=== PATIENT | male | born 1975 | race Caucasian/White ===

== ENCOUNTER 2023-11-27 13:38 | Outpatient (CLI) | payer OTHER, SELFPAY ==
--- NOTE | 2023-11-27 13:45 | US_ITS ---
FINAL REPORT TECHNIQUE: Ultrasound images of the kidneys and bladder were obtained. CLINICAL HISTORY: PREVIOUS IMAGING SHOWED CYST AND STONES FINDINGS: The right kidney measures 10.6 cm in length. It is normal in echogenicity. There is no hydronephrosis. The left kidney measures 10.5 cm in length. It is normal in echogenicity. There is no hydronephrosis. The spleen is unremarkable. There is a probable 1.2 cm parapelvic cyst. IMPRESSION: Probable parapelvic cyst. Reviewed, Interpreted and Dictated by Peter Rojas III, MD Transcribed by Millicent Guadarrama Authenticated and [facility]
== END 2023-11-27 23:59 | disposition home or self-care (01) ==
LOC: RAD 13:41
PROVIDERS: PCP Nurse Practitioner; Visit Provider Nurse Practitioner
DX: E27.8 Other specified disorders of adrenal gland (principal); N28.1 Cyst of kidney, acquired; N20.0 Calculus of kidney
CPT/HCPCS: 76770

== ENCOUNTER 2024-04-24 12:36 | Outpatient (CLI) | payer OTHER, SELFPAY ==
[2024-04-24 13:10] LABS: Basophils # 0.1 K/mm3 (0-0.2); Basophils % 0.7 % (0.1-2.0); Eosinophils # 0.4 K/mm3 (0.0-0.4); Eosinophils % 3.9 % (0.1-12.0); Hematocrit 46.4 % (42.0-52.0); Hemoglobin 15.6 g/dL (14.1-18.0); Lymphocytes # 2.6 K/mm3 (0.7-4.5); Lymphocytes % 23.2 % (10-50); Mean Corpuscular HGB Conc 33.6 g/dL (31.8-35.4); Mean Corpuscular Hemoglobin 30.6 pg (27.0-31.2); Mean Corpuscular Volume 91.2 fl (80-94); Mean Platelet Volume 10.8 fl (7.4-10.4); Monocytes # 0.4 K/mm3 (0.1-1.0); Monocytes % 3.8 % (1.7-9.3); Neutrophils # 7.6 K/mm3 (1.8-7.8); Platelet Count 289 K/mm3 (142-424); Red Blood Count 5.09 M/mm3 (4.60-6.20); White Blood Count 11.1 K/mm3 (4.8-10.8)
[2024-04-24 13:41] LABS: Alanine Aminotransferase 23 U/L (12-78); Albumin Level 4.7 g/dl (3.5-5.0); Albumin/Globulin Ratio 1.8 (1.1-1.8); Alkaline Phosphatase 82 U/L (38-126); Anion Gap 13.1 mEq/L (5-15); Aspartate Amino Transferase 30 U/L (17-59); Bilirubin,Total 0.6 mg/dl (0.2-1.3); Blood Urea Nitrogen 16 mg/dl (9-20); Calcium 9.8 mg/dl (8.4-10.2); Carbon Dioxide 30 mmol/L (22.0-30.0); Chloride 103 mmol/L (98-107); Chol/HDL Ratio 5.4 (1-3.5); Cholesterol 179 mg/dl (140-200); Estimated Glomerular Filt Rate 64 ml/min (>60); GFR (African American) 78 ML/MIN (>60); Globulin 2.6 g/dL (1.3-3.2); Glucose 120 mg/dl (74-100); HDL Cholesterol 33 mg/dl (40-60); Potassium 4.1 mmoL/L (3.5-5.1); Sodium 142 mmol/L (136-145); Total Protein,Serum 7.3 g/dl (6.3-8.2); Triglycerides 178 mg/dl (30-150); VLDL Cholesterol 36 mg/dL (0-40)
[2024-04-24 13:48] LABS: Iron 98 ug/dL (49-181)
[2024-04-24 13:54] LABS: Erythrocyte Sedimentation Rate 23 mm/hr (0-15)
[2024-04-24 13:58] LABS: C-Reactive Protein 18.1 mg/L (0-4); Direct LDL Cholesterol 100.33 mg/dL (100-129); Total Iron Binding Capacity 267 ug/dL (261-462)
[2024-04-24 13:59] LABS: 25-OH Vitamin D, Total 38.4 ng/mL (30-100)
[2024-04-24 14:01] LABS: T4 (Thyroxine) 8.6 ug/dl (5.53-11.0)
[2024-04-24 14:15] LABS: Prostate Specific Ag Screen 1.8 ng/ml (0.0-4.0); Thyroid Stimulating Hormone 2.15 uIU/mL (0.465-4.68)
[2024-04-24 14:22] LABS: HIV Combo NEGATIVE (Negative)
[2024-04-24 14:25] LABS: Ferritin 245 ng/ml (17.9-464)
[2024-04-24 14:29] LABS: Hepatitis C Ab Qual. W/ RFX NEGATIVE (Negative)
[2024-05-01 08:17] LABS: Testosterone,Total 263 ng/dL (264-916)
[2024-05-04 22:07] LABS: Testosterone,Free 2.4 pg/mL (7.2-24.0)
== END 2024-04-24 23:59 | disposition home or self-care (01) ==
LOC: LAB 12:38
PROVIDERS: PCP Nurse Practitioner; Visit Provider Nurse Practitioner Family
DX: N20.0 Calculus of kidney (principal); N28.1 Cyst of kidney, acquired; R53.83 Other fatigue; Z11.4 Encounter for screening for human immunodeficiency virus [HIV]; Z11.59 Encounter for screening for other viral diseases; Z12.5 Encounter for screening for malignant neoplasm of prostate
CPT/HCPCS: 36415; 80053; 80061; 82306; 82728; 82746; 83540; 83550; 84402; 84403; 84436; 84443; 85025; 85651; 86140; 86803; 87389; G0103

== ENCOUNTER 2024-05-08 17:39 | Emergency (ER) | payer OTHER, SELFPAY ==
[2024-05-08 17:55] VITALS: BP 140/79; PULSE 60; RESP 16; TEMP 36.4; O2SAT 98; BMI 25.7
--- NOTE | 2024-05-08 19:35 | ED_ITS ---
<Statement entered by Tiffany Vigil DO - 05/08/24 23:58> I was consulted by the RIYA, and we discussed the complexity of the problems being addressed. I approved the treatment and management plan for this patient's care in the emergency department, thus performing a substantive portion of the medical decision making. Tiffany Vigil DO Discharge Plan Disposition Patient Disposition: Home, Self-Care Condition: Good Prescriptions Prescriptions: New prednisone 50 mg tablet 50 mg PO DAILY 5 Days Qty: 5 0RF ondansetron 4 mg tablet,disintegrating 4 mg PO QID PRN (Reason: nausea and vomiting) Qty: 10 0RF Referrals Follow up/Referrals: Rasheeda Schmidt APRN [Primary Care Provider] - See instructions Dean Stroud DO [Staff Physician] - See instructions Activity Restrictions/Add. Instructions Additional Instructions/Restrictions: Continue the steroids as long as you have no reaction. Absent both the prescription for that and antiemetics into your pharmacy. Please call tomorrow to make your appointment with Dr. Stroud. If you have any continued new or worsening signs or symptoms follow-up with your PCP or return to the ER as needed. Clinical Impressions Clinical Impression: Arm paresthesia, left Print Language Print Language: [place] Discharge ED Provider: Tiffany Vigil General Adult HPI General Chief complaint: PAIN Stated complaint: Left shoulder pain,left hand numb Time Seen by Provider: 05/08/24 19:35 Mode of Arrival: Ambulatory Source of Information: Patient Limitations: No Limitations Description of Symptoms (Recalled from ER Triage Doc. by RN): Pt presents with c/o left shoulder pain and numbness to his thumb/index/middle finger. Pt states he has had this for 3 weeks. History of Present Illness HPI narrative: Patient presents for evaluation of numbness to his left hand and left shoulder pain. Patient gives a 3-week history of nontraumatic left hand numbness primarily of the first 3 digits. It does not cross the elbow. Patient reports that he also has muscle ache deep to his left shoulder blade. He does not however have any loss of range of motion no aggravating or relieving factors. He is taking nothing for this. He has not seen anyone for this. Related Data Previous Rx's ?Medication ?Instructions ?Recorded ondansetron 4 mg disintegrating 4 mg PO QID PRN nausea and 02/20/25 tablet vomiting #10 tabs prednisone 50 mg tablet 50 mg PO DAILY 5 days #5 tabs 05/08/24 Allergies Allergy/AdvReac Type Severity Reaction Status Date / Time Pain medication Allergy Mild Uncoded 04/24/24 11:23 [facility] Disclaimer: The information contained in this section may have been updated after the patient was seen, as this information can be updated by other users. Medical History Injury while horseback riding Traumatic injury of chest wall Umbilical hernia Left inguinal hernia Renal calculus Renal cyst Left adrenal mass Multiple rib fractures Hx of nephrolithotomy with removal of calculi Surgical History Hx of appendectomy Hx of vasectomy Hx of knee surgery Right knee surgery x2 Social History Smoking Status: Current every day smoker alcohol intake: never current occupational status: employed Travel in the last 8 weeks: Inside the [place] Have you lived/traveled outside [place] in past 30 days?: No Contact w/someone who lives/traveled outside [place] past 30 days?: No Exposure to someone with infectious disease in past 14 days?: No Do you have a fever (greater than 100.4 F or 38 C)?: No Have you tested positive for COVID-19: No Exposed to someone with COVID-19 in past 14 days?: No Do you have a sore throat?: No Do you have a cough?: No Do you have any weakness?: No Do you have any diarrhea?: No Are you experiencing any unusual bleeding?: No Do you have any muscle aches/pain?: No Do you have any abdominal pain?: No Are you experiencing loss of taste or smell?: No Other Medical History Have you received the Pneumonia Vaccine: No ROS Obtained: Yes Systems reviewed as appropriate & no additional complaints except as documented Physical Exam General General appearance: alert and in no apparent distress Respiratory Respiratory exam: Present normal lung sounds bilaterally Cardiovascular Cardiovascular exam: Present regular rate Neurological Exam Neurological exam: Present alert and oriented X3 Medical Decision Making Medical Records Medical records reviewed: Yes I reviewed the patient's medical records. Screening: Per USPSTF and CDC recommendations, given the prevalence of disease in our region, it is our hospital?s policy to screen for HIV and viral Hepatitis for all patients aged 18 and over and those with ongoing risk factors. Jorge Inquiry Pt receiving controlled substance: No Vital Signs: 05/08/24 17:55 05/08/24 20:57 05/08/24 20:59 Temperature 97.6 F 98.2 F 98.2 F Temperature Source Oral Oral Oral Pulse Rate 62 62 Pulse Rate [Right] 60 Respiratory Rate 16 18 20 Blood Pressure 142/93 H 142/93 H Blood Pressure [Right Arm] 140/79 Blood Pressure Mean [Right Arm] 99 Blood Pressure Source Automatic Cuff Automatic Cuff Blood Pressure Source [Right Arm] Automatic Cuff Blood Pressure Position Sitting Sitting Blood Pressure Position [Right Arm] Sitting 02 Sat by Pulse Oximetry 98 Oxygen Delivery Method Room Air Room Air Room Air Orders (Tests/Meds): ED MEDICATIONS Discontinued Medications Generic Name Dose Route Start Last Admin Trade Name Freq PRN Reason Stop Dose Admin Prednisone 60 mg 05/08/24 19:44 05/08/24 19:52 Prednisone 20mg Tab PO 05/08/24 19:45 60 mg ONCE ONE Administration Medical Decision Narrative: In summary patient is a 48-year-old male who presents to the emergency department for evaluation of left hand paresthesia and shoulder pain. Patient is hemodynamically stable upon arrival, afebrile. Physical exam is remarkable for bilateral equal solution engineer strengths, no muscle weakness, patient has full range of motion of the entirety of the left upper extremity, patient has no cervical tenderness to palpation patient has no trapezius or muscle girdle tenderness around the left shoulder. Patient has no focal neurologic deficits. Patient does report numbness of the first 3 fingers on palpation. He has negative Tinel's or Phalen's. He has no tenderness to palpation about the elbow. Patient has no evidence of trauma to the left upper extremity.. Differential diagnosis includes cervical disc problem versus brachial plexus injury versus radial nerve radiculopathy versus carpal tunnel etc. Initial workup was considered with imaging however via a discussion with the patient and shared decision making I offered the patient noncontrasted studies of the C and T-spine as well as plain film x-rays of the shoulder and upper extremity and I expressed my reservations that would be unlikely to be able to diagnosed a soft tissue problem but there is a possibility he could have a more central problem his findings are more peripheral. Additionally patient had no red flags of focal neurologic deficits and retained full range of motion and muscle strength of his left upper extremity that has outpatient [facility] was more advantageous. I offered instead to try to treat the patient with steroids and referral to orthopedics. Via patient directed decision making and discharge patient elected for the latter and we medicated with 60 mg of prednisone. After about an hour patient reported that he started to have some feeling returning to his fingers and felt comfortable going home with follow-up with orthopedics for further evaluation and care. Thus patient will be discharged with a prescription for a short course of steroids and referral of Dr. Srtoud of orthopedics and strict return precautions. Critical Care Critical Care Time Critical Care Time: No
--- NOTE | 2024-05-08 19:45 | PC.NURSE ---
Report received from Misty TRUJILLO Pt resting quietly in recliner. Skin pink warm and dry Resp full and easy Speech clear and appropriate. Alert and oriented.
[2024-05-08] MEDS: predniSONE 20MG TAB 60 MG PO (19:52)
[2024-05-08 20:57] VITALS: BP 142/93; PULSE 62; RESP 18; TEMP 36.8; O2SAT 100
[2024-05-08 20:59] VITALS: BP 142/93; PULSE 62; RESP 20; TEMP 36.8; O2SAT 98
== END 2024-05-08 20:58 | disposition home or self-care (01) ==
PROVIDERS: Emergency Provider Emergency Medicine; PCP Nurse Practitioner
DX: R20.2 Paresthesia of skin (principal); M25.512 Pain in left shoulder
CPT/HCPCS: 99283